=== PATIENT | male | born 1990 | race Hispanic/Latino ===

== ENCOUNTER 2017-10-31 09:53 | Emergency (ER) | payer BC, MEDICAID ==
[2017-10-31 10:15] VITALS: BP 123/82; PULSE 72; RESP 16; TEMP 98.2; O2SAT 96
--- NOTE | 2017-10-31 11:06 | C.PDOC ---
History Of Present Illness Bj Salcido is a 27 y/o male with a past medical history of diabetes, presenting to the ER for a med refill. Patient states he dropped his vial of insulin and needs a refill. Reports that he tried calling his doctor but the office is closed. He has no physical complaints. Time Seen by Provider: 10/31/17 11:03 Chief Complaint (Nursing): Med Refill History Per: Patient History/Exam Limitations: no limitations Onset/Duration Of Symptoms: Days (x 1) Current Symptoms Are (Timing): Still Present Past Medical History Reviewed: Historical Data, Nursing Documentation, Vital Signs Vital Signs: Last Vital Signs Temp 98.2 F 10/31/17 10:07 Pulse 72 10/31/17 10:07 Resp 16 10/31/17 10:07 BP 123/82 10/31/17 10:07 Pulse Ox 96 10/31/17 11:12 - Medical History PMH: Diabetes Denies: Chronic Kidney Disease Family History: States: Unknown Family Hx - Social History Hx Tobacco Use: No Hx Alcohol Use: No Hx Substance Use: No Review Of Systems Constitutional: Negative for: Weakness, Other (Pain) Neurological: Negative for: Dizziness Physical Exam - Physical Exam Appears: Well, Non-toxic, No Acute Distress Skin: Normal Color Head: Atraumatic, Normacephalic Eye(s): bilateral: Normal Inspection, PERRL, EOMI Nose: Normal Oral Mucosa: Moist Neck: Normal Chest: Symmetrical Extremity: Bilateral: Atraumatic, Normal Color And Temperature, Normal ROM Neurological/Psych: Oriented x3, Normal Speech, Other (No focal deficits) ED Course And Treatment O2 Sat by Pulse Oximetry: 96 (RA) Pulse Ox Interpretation: Normal Medical Decision Making Medical Decision Making: Patient needs medication refill. His doctor office is closed. Patient states he dropped his bottle and it broke. Offers no complaints. Disposition Counseled Patient/Family Regarding: Diagnosis, Need For Followup, Rx Given - Disposition Disposition: HOME/ ROUTINE Disposition Time: 11:06 Condition: GOOD Additional Instructions: Please follow up with your primary doctor Prescriptions: Insulin Lispro [Humalog (Insulin Lispro)] 80 unit SQ DAILY #1 cartridge Instructions: Medicine Refill (ED) Forms: [employer] (Lao) - POA Present On Arrival: None - Clinical Impression Clinical Impression: Medication refill - PA / HIGH WORKER / Resident Statement MD/DO has reviewed & agrees with the documentation as recorded. - Scribe Statement The provider has reviewed the documentation as recorded by the Scribe (Lexi Gallo) All medical record entries made by the Scribe were at my direction and personally dictated by me. I have reviewed the chart and agree that the record accurately reflects my personal performance of the history, physical exam, medical decision making, and the department course for this patient. I have also personally directed, reviewed, and agree with the discharge instructions and disposition.
== END 2017-10-31 11:15 | disposition home or self-care (01) ==
LOC: C.ER 09:53
DX: Z76.0 Encounter for issue of repeat prescription (principal); E11.9 Type 2 diabetes mellitus without complications; Z79.4 Long term (current) use of insulin